=== PATIENT | male | born 1995 | race Caucasian/White ===

== ENCOUNTER 2022-03-12 22:54 | Emergency (ER) | payer OTHER ==
[~2022-03-12 22:54] MED LIST: PROTONIX40 MG PO; [UNRECOGNIZED DRUG - REMARK]
[2022-03-12 23:33] LABS: HEMOGLOBIN 12.6 gm/dl (14.0-17.5); RED BLOOD COUNT 4.76 M/UL (4.20-5.50); WHITE BLOOD COUNT 15.1 K/UL (4.5-11.0)
[2022-03-12 23:57] LABS: BUN/CREATININE RATIO 12 (0-10)
== END 2022-03-13 01:50 | disposition home or self-care (01) ==
LOC: ER1 22:54
PROVIDERS: Physician Assistant
DX: R55 Syncope and collapse (principal); R00.2 Palpitations; F17.290 Nicotine dependence, other tobacco product, uncomplicated; Z88.0 Allergy status to penicillin; Z88.2 Allergy status to sulfonamides; Z88.8 Allergy status to other drugs, medicaments and biological substances
CPT/HCPCS: 70450; 71045; 80053; 80307; 81001; 82550; 82553; 83690; 83735; 84439; 84443; 84484; 85025; 87086; 93005; 99285; G0480